=== PATIENT | female | born 2000 | race Hispanic/Latino ===

== ENCOUNTER 2021-09-18 14:56 | Outpatient (CLI) | payer OTHER ==
[2021-09-19 08:36] LABS: SARS-CoV-2 PCR by NAA DETECTED (NotDetected)
== END 2021-09-18 14:57 | disposition home or self-care (01) ==
LOC: CSHLAB 14:56
PROVIDERS: ATTEND Family Medicine
DX: U07.1 COVID-19 (principal)
CPT/HCPCS: U0003; U0005

== ENCOUNTER 2021-09-22 11:08 | Inpatient (IN) | payer MEDICAID, OTHER, SELFPAY ==
[2021-09-23] MEDS ORDERED: Promethazine HCl 25 MG/ML VIAL IM PRN ×3 (02:27→13:38)
[2021-09-23] MEDS ORDERED: Misoprostol 200 MCG TAB PR PRN (02:27)
[2021-09-23] MEDS ORDERED: Butorphanol Tartrate 1 MG/ML VIAL SLOW IVP PRN (02:27)
[2021-09-23] MEDS ORDERED: Carboprost 250 MCG/ML AMP IM PRN (02:27)
[2021-09-23] MEDS ORDERED: HYDROcodone/Acetaminophen 5/325 mg Tablet PO PRN ×2 (02:27→13:38)
[2021-09-23] MEDS ORDERED: NS w/ Oxytocin 30 units 500 ML IV SCH ×2 (02:27→13:38)
[2021-09-23] MEDS ORDERED: Ondansetron PF 4 MG/2 ML Vial IVP PRN ×3 (02:27→13:38)
[2021-09-23] MEDS ORDERED: Diphenoxylate HCl/Atropine Tablet PO PRN (02:27)
[2021-09-23] MEDS ORDERED: Lidocaine 1% (PF) 30 ML VIAL SC PRN (02:27)
[2021-09-23] MEDS ORDERED: Ibuprofen 800 MG TAB PO PRN (02:27)
[2021-09-23] MEDS ORDERED: Methylergonovine 0.2 MG/ML VIAL IM PRN (02:27)
[2021-09-23] MEDS ORDERED: hydrALAZINE 20 MG/ML VIAL SLOW IVP PRN (02:27)
[2021-09-23] MEDS ORDERED: Acetaminophen 500 MG TAB PO PRN (02:27)
[2021-09-23 02:59] LABS: Mean Corpuscular HGB CONC 33.3 g/dL (32.0-36.0); Mean Corpuscular Hemoglobin 28.6 pg (27.0-33.0); Mean Corpuscular Volume 85.7 fl (81.6-98.3); Mean Platelet Volume 10.9 fl (7.4-10.4); Platelet Count 260 10x3/uL (150-450); RBC Distribution Width 13.3 % (11.5-14.5); Red Blood Cell (RBC) Count 3.85 10x6/uL (3.90-5.03)
[2021-09-23 03:04] VITALS: BMI 33.3
[2021-09-23] MEDS ORDERED: Penicillin G Potassium 5 MILL.UNITS in Sodium Chloride 0.9% 100 ML IVPB SCH (03:15)
[2021-09-23 03:24] LABS: Hep B Surf Ag Non-Reactive S/CO (NonReactive); Syphilis Antibody Nonreactive (Nonreactive); Syphilis Antibody Index 0.02 S/CO (<1.00 Non-Reactive)
[2021-09-23 03:31] LABS: HBSAg Index 0.16 S/CO (0-0.99)
[2021-09-23] MEDS: NS w/ Oxytocin 30 units 500 ML IV SCH ×2 (05:10→12:25)
[2021-09-23] MEDS ORDERED: Penicillin G 2.5 MILL.units 2.5 MILL.UNITS in Premix Bag 1 BAG IVPB SCH (07:00)
[2021-09-23] MEDS ORDERED: Bupivacaine 0.25% HCL 30 ML VIAL ONE (08:00)
[2021-09-23] MEDS ORDERED: Fentanyl 2 mcg/Bup 0.1% Cadd 100 ML ONE (09:33)
[2021-09-23] MEDS: Lactated Ringer's 1,000 ML IV SCH ×2 (09:56→15:07)
[2021-09-23] MEDS ORDERED: Lactated Ringer's 500 ML IV PRN (10:11)
[2021-09-23] MEDS ORDERED: ePHEDrine Sulfate 50 MG/10 ML VIAL SLOW IVP PRN (10:11)
[2021-09-23] MEDS ORDERED: diphenhydrAMINE 50 MG/ML VIAL IVP PRN (10:11)
[2021-09-23] MEDS ORDERED: Acetaminophen 325 MG TAB PO PRN (10:11)
[2021-09-23] MEDS ORDERED: Hydrocerin (Eucerin) Cream 120 gm Jar TOP PRN (10:11)
[2021-09-23] MEDS ORDERED: Naloxone HCl 0.4 mg/ml Vial IVP PRN ×2 (10:11)
[2021-09-23] MEDS ORDERED: Fentanyl 2 mcg/Bupivacaine 0.1% Cassette 100 ML EPIDURAL SCH (10:15)
[2021-09-23] MEDS ORDERED: Communication Order-Pharmacy FS PRN (10:15)
[2021-09-23] MEDS ORDERED: Bisacodyl 10 MG SUPP PR PRN (13:38)
[2021-09-23] MEDS ORDERED: diphenhydrAMINE 25 MG CAP PO PRN (13:38)
[2021-09-23] MEDS ORDERED: Boostrix 0.5 ML (Tdap) VIAL IM ONE (13:38)
[2021-09-23] MEDS ORDERED: Benzocaine-Menthol 82.5 ML CAN TOP PRN (13:38)
[2021-09-23] MEDS ORDERED: Milk Of Magnesia 30 ML UDCUP PO PRN (13:38)
[2021-09-23] MEDS ORDERED: Lanolin Ointment 7 GM TUBE TOP PRN (13:38)
[2021-09-23] MEDS: Misoprostol 100 MCG TAB VAG SCH (15:07)
[2021-09-23] MEDS: Ibuprofen 800 MG TAB PO SCH (15:58)
[2021-09-23] MEDS: Ferrous Sulfate 325 MG TAB PO SCH (18:47)
[2021-09-23] MEDS: Docusate 100 MG CAP PO SCH (21:33)
[2021-09-24] MEDS: Ibuprofen 800 MG TAB PO SCH ×3 (00:05→15:30)
[2021-09-24] MEDS: Docusate 100 MG CAP PO SCH (08:54)
[2021-09-24] MEDS: Ferrous Sulfate 325 MG TAB PO SCH ×2 (08:54→11:20)
[2021-09-24] MEDS ORDERED: Prenatal Vitamin 1 TAB PO SCH (09:00)
[2021-09-24 11:28] VITALS: BP 106/56; TEMP 98.7
== END 2021-09-24 18:50 | disposition home or self-care (01) | DRG 805 ==
LOC: CSHLD 09-23 00:49 → CSHPP 09-23 14:40
PROVIDERS: ADMIT Family Medicine; ATTEND Family Medicine
PROC: 10E0XZZ Delivery of Products of Conception, External Approach (ICD-10-PCS; principal; 2021-09-23)
PROC: 8E0ZXY6 Isolation (ICD-10-PCS; 2021-09-23)
PROC: 3E0P7VZ Introduction of Hormone into Female Reproductive, Via Natural or Artificial Opening (ICD-10-PCS; 2021-09-23)
PROC: 3E033VJ Introduction of Other Hormone into Peripheral Vein, Percutaneous Approach (ICD-10-PCS; 2021-09-23)
DX: O98.52 Other viral diseases complicating childbirth (principal); U07.1 COVID-19; Z37.0 Single live birth; Z3A.39 39 weeks gestation of pregnancy
CPT/HCPCS: 36415; 51702; 85027; 86780; 86850; 86900; 86901; 87340; J2590; J7120; S0020